=== PATIENT | male | born 1960 | race Caucasian/White ===

== ENCOUNTER 2016-09-17 20:59 | Emergency (ER) | payer SELFPAY ==
[~2016-09-17] VITALS: Ht 180.3 cm; Wt 80.7 kg
[~2016-09-17 20:59] MED LIST: NITR0.4T8 SL; WARF10TA PO; WARF5TAB PO
[2016-09-17] MEDS ORDERED: ONDANSETRON 2MG/ML, 2ML IVPush ONE (22:30)
[2016-09-17] MEDS ORDERED: SODIUM CHLORIDE 0.9% 1,000ML IVBOLUS ONE (22:30)
[2016-09-17] MEDS ORDERED: ONDANSETRON 2MG/ML, 2ML ONE (22:50)
[2016-09-17] MEDS ORDERED: HYDROmorphone 1 MG/ML, 1ML ONE ×2 (22:50→23:54)
[2016-09-17] MEDS: HYDROmorphone 1 MG/ML, 1ML IVPush PRN (23:03)
[2016-09-17 23:13] LABS: BLOOD UREA NITROGEN 9 mg/dL (7-18)
[2016-09-17 23:18] LABS: ASPARTATE AMINO TRANSFERASE 13 U/L (15-37)
[2016-09-17 23:22] LABS: IS PT STATUS REG ER OR PRE ER? YES
[2016-09-17 23:48] VITALS: BP 118/59
[2016-09-18] MEDS: HYDROmorphone 1 MG/ML, 1ML IVPush PRN (00:01)
[2016-09-18] MEDS ORDERED: OMNIPAQUE 350 MG/ML, 100ML BOTTLE ONE (00:20)
== END 2016-09-18 00:39 | disposition left against medical advice (07) ==
LOC: ED 23:18
DX: R07.89 Other chest pain (principal); M79.661 Pain in right lower leg; I25.10 Atherosclerotic heart disease of native coronary artery without angina pectoris; I50.9 Heart failure, unspecified; I25.2 Old myocardial infarction; Z88.8 Allergy status to other drugs, medicaments and biological substances
CPT/HCPCS: 36415; 71275; 80053; 83880; 84484; 85025; 85610; 85730; 93005; 96361; 96374; 96375; 96376; 99285; J1170; J2405; J7030; Q9967